=== PATIENT | male | born 1950 | race Caucasian/White ===

== ENCOUNTER 2018-09-02 09:04 | Emergency (ER) | payer MEDICARE, OTHER ==
[~2018-09-02] VITALS: Ht 177.8 cm; Wt 68.2 kg
[2018-09-02 11:12] VITALS: BP 134/84
== END 2018-09-02 11:18 | disposition home or self-care (01) ==
LOC: ER 09:05
DX: I10 Essential (primary) hypertension (principal)
CPT/HCPCS: 93005; 99283